=== PATIENT | female | born 1945 | race Caucasian/White ===

== ENCOUNTER 2018-07-18 21:15 | Emergency (ER) | payer OTHER, BC ==
--- NOTE | 2018-07-18 21:26 | PDOC ---
History of Present Illness - General Chief Complaint: Diarrhea Stated Complaint: DIARRHEA X 24 HOURS/NAUSEA Time Seen by Provider: 07/18/18 21:19 Past History - Past Medical History Allergies/Adverse Reactions: Allergies Allergy/AdvReac Type Severity Reaction Status Date / Time Penicillins Allergy Verified 09/26/12 08:33 Sulfa (Sulfonamide Allergy Verified 09/26/12 08:33 Antibiotics) LATEX Allergy Uncoded 09/26/12 08:34 Home Medications: Ambulatory Orders Esomeprazole Mag Trihydrate [Nexium] 40 mg PO DAILY 05/01/13 Janumet 50-500 mg Tablet 5,500 mg PO BID 05/01/13 Diabetes: Yes - Surgical History Cholecystectomy: Yes - Suicide/Smoking/Psychosocial Hx Smoking Status: No Smoking History: Former smoker Have you smoked in the past 12 months: No Number of Cigarettes Smoked Daily: 0 Hx Alcohol Use: No Drug/Substance Use Hx: No Substance Use Type: None Hx Substance Use Treatment: No *DC/Admit/Observation/Transfer - Discharge Dispostion Condition at time of disposition: Stable - Referrals - Patient Instructions - Post Discharge Activity
[2018-07-18 21:38] VITALS: BP 131/82; PULSE 85; TEMP 97.3; BMI 25.8
[2018-07-18] MEDS ORDERED: LOPERAMIDE HCL 2 MG CAPSULE ONE (21:42)
[2018-07-18] MEDS ORDERED: SODIUM CHLORIDE 500 ML IV STA ×2 (21:42→22:38)
[2018-07-18] MEDS ORDERED: ONDANSETRON 4 MG/2 ML VIAL ONE ×2 (21:43→23:33)
[2018-07-18] MEDS ORDERED: LOPERAMIDE HCL 2 MG CAPSULE PO ONE (21:43)
[2018-07-18] MEDS ORDERED: ONDANSETRON 4 MG/2 ML VIAL IVPUSH ONE (21:43)
[2018-07-18 21:47] LABS: BASO % 0.8 % (0-2.0); EOS % 1.9 % (0-4.5); HEMATOCRIT 43.2 % (32.4-45.2); HEMOGLOBIN 14.3 GM/dl (10.7-15.3); LYMPH % 19.1 % (8-40); MCH 26.2 pg (25.7-33.7); MCHC 33.1 g/dl (32.0-36.0); MEAN CELL VOLUME 79.3 fl (80-96); MEAN PLT VOLUME 9.3 fl (7.5-11.1); MONO % 5.7 % (3.8-10.2); NEUT % 72.5 % (42.8-82.8); PLATELET COUNT 313 K/MM3 (134-434); RBC 5.45 M/mm3 (3.60-5.2); RDW 15.4 % (11.6-15.6)
[2018-07-18 21:54] LABS: ALBUMIN 4.7 g/dl (3.4-5.0); ALK PHOS 106 U/L (45-117); ANION GAP 13 MMOL/L (8-16); BILIRUBIN,TOTAL 0.8 mg/dl (0.2-1); BLOOD UREA NITROGEN 30 mg/dl (7-18); CALCIUM 10.3 mg/dl (8.5-10); CHLORIDE 104 mmol/L (98-107); CO2 19 mmol/L (21-32); CREATININE 1.5 mg/dl (0.55-1.3); GLUCOSE,RANDOM 181 mg/dl (74-106); POTASSIUM 4.6 mmol/L (3.5-5.1); SGOT/AST 22 U/L (15-37); SGPT/ALT 31 U/L (13-61); SODIUM 136 mmol/L (136-145); TOT PROT 8.2 g/dl (6.4-8.2)
[2018-07-19] MEDS ORDERED: ONDANSETRON *ODT* 4 MG TABLET ONE (01:28)
--- NOTE | 2018-07-19 03:28 | PDOC ---
Documentation entered by Ruddy Hendrickson SCRIBE, acting as scribe for Aleah Donato MD. Aleah Donato MD: This documentation has been prepared by the Emeka brady Xhesika, SCRIBE, under my direction and personally reviewed by me in its entirety. I confirm that the documentation accurately reflects all work, treatment, procedures, and medical decision making performed by me. History of Present Illness - General Chief Complaint: Diarrhea Stated Complaint: DIARRHEA X 24 HOURS/NAUSEA Time Seen by Provider: 07/18/18 21:19 History Source: Patient Exam Limitations: No Limitations - History of Present Illness Initial Comments: 07/18/18 22:29 The patient is a 73 year old female, with a significant past medical history of Anxiety, PTSD, SVT, Small bowel obstruction, hypertension, high cholesterol, coronary disease and diabetes who presents to the emergency department with sever, constant, yellow mucus diarrhea and nausea since yesterday. The patient states she did not eat all day yesterday , however, she ate a slice of pizza from 10/06. The patient states she endorses stomach pain, blurry vision, dehydration, lightheadedness, and palpitations, however, the palpitations and blurry vision have since resolved. The patient states her girlfriend recently had the flu. The patient notes she went to urgent care and was told to go to [facility] but the wait was long so she came to the ED. The patient denies chest pain, shortness of breath, headache. The patient denies fever, chills, vomit, or constipation. The patient denies dysuria or hematuria. Allergies:diphenhydramine, Penicillins, LATEX, and sulfa Past surgical history:Cholecystectomy Social history: Former smoker Past History - Past Medical History Allergies/Adverse Reactions: Allergies Allergy/AdvReac Type Severity Reaction Status Date / Time diphenhydramine Allergy Verified 07/18/18 21:39 [From Benadryl] Penicillins Allergy Verified 07/18/18 21:26 Sulfa (Sulfonamide Allergy Verified 07/18/18 21:26 Antibiotics) LATEX Allergy Uncoded 07/18/18 21:26 Home Medications: Ambulatory Orders Bupropion HCl [Wellbutrin -] 300 mg PO DAILY 07/18/18 Esomeprazole Magnesium [Nexium 24Hr] 40 mg PO DAILY 07/18/18 Sitagliptin Phos/Metformin HCl [Janumet 50-500 mg Tablet] 1 each PO DAILY Ondansetron [Zofran Odt -] 4 mg SL BID PRN #6 od.tablet 07/19/18 COPD: No Diabetes: Yes Other medical history: PTSD/ANXIETY - Surgical History Cholecystectomy: Yes - Suicide/Smoking/Psychosocial Hx Smoking Status: No Smoking History: Former smoker Have you smoked in the past 12 months: No Number of Cigarettes Smoked Daily: 0 Information on smoking cessation initiated: No Hx Alcohol Use: No Drug/Substance Use Hx: No Substance Use Type: None Hx Substance Use Treatment: No Review of Systems - Review of Systems Able to Perform ROS?: Yes Comments:: 07/18/18 22:29 GENERAL/CONSTITUTIONAL: No fever or chills. No weakness. HEAD, EYES, EARS, NOSE AND THROAT: (+) blurry vision. No ear pain or discharge. No sore throat. CARDIOVASCULAR: No chest pain or shortness of breath. RESPIRATORY: No cough, wheezing, or hemoptysis. GASTROINTESTINAL: (+) nausea, diarrhea. No constipation. GENITOURINARY: No dysuria, frequency, or change in urination. MUSCULOSKELETAL: (+) stomach pain. No joint or muscle swelling or pain. No neck or back pain. SKIN: No rash NEUROLOGIC: (+) lightheadedness. No headache, vertigo, loss of consciousness, or change in strength/sensation. ENDOCRINE: No increased thirst. No abnormal weight change. HEMATOLOGIC/LYMPHATIC: No anemia, easy bleeding, or history of blood clots. ALLERGIC/IMMUNOLOGIC: No hives or skin allergy. *Physical Exam - Vital Signs Last Vital Signs Temp Pulse Resp BP Pulse Ox 97.3 F L 85 16 131/82 100 07/18/18 21:32 07/18/18 21:32 07/18/18 21:32 07/18/18 21:32 07/18/18 21:32 - Physical Exam Comments: 07/18/18 22:30 GENERAL: Awake, alert, and fully oriented, in no acute distress HEAD: No signs of trauma EYES: PERRLA, EOMI, sclera anicteric, conjunctiva clear ENT: Auricles normal inspection, hearing grossly normal, nares patent, oropharynx clear without exudates. (+) dry mucosa NECK: Normal ROM, supple, no lymphadenopathy, JVD, or masses LUNGS: Breath sounds equal, clear to auscultation bilaterally. No wheezes, and no crackles HEART: Regular rate and rhythm, normal S1 and S2, no murmurs, rubs or gallops ABDOMEN: (+) Well healed midline scar. (+) generalized mild tenderness without rebound or guarding. normoactive bowel sounds. No masses EXTREMITIES: Normal range of motion, no edema. No clubbing or cyanosis. No cords, erythema, or tenderness NEUROLOGICAL: Cranial nerves II through XII grossly intact. Normal speech, normal gait SKIN: Warm, Dry, normal turgor, no rashes or lesions noted. ED Treatment Course - LABORATORY CBC & Chemistry Diagram: 07/18/18 21:32 07/18/18 21:32 Medical Decision Making - Medical Decision Making 07/19/18 01:19 Because of the patient's history of small bowel obstruction and air fluid levels found on flat and upright x-ray views of the abdomen, noncontrast CT of the abdomen and pelvis performed. Preliminary interpretation by Imaging socially responsible investment adviser : Air-fluid levels within colon without wall thickening suspicious for diarrheal disease. Stomach and small bowel are normal without evidence of obstruction. No evidence of appendicitis. There is evidence of mild splenomegaly and neurogenic bladder. Clinical presentation most consistent with gastroenteritis, likely food borne ( although viral gastroenteritis is still possible). Results discussed with the patient. She states that she is feeling much better with no further lightheadedness/nausea or abdominal discomfort. She had 2 episodes of loose stool while here in the emergency room, both when she first arrived. In the last 3-4 hours, while evaluation was being completed, she had no further diarrhea. Patient will be discharged with instructions to continue clear liquids as tolerated with cautious advancement of diet. Zofran ODT 4 mg up to twice a day (#6) prescription will be sent to her pharmacy. She should return to the emergency room if she has vomiting/fever/increasing abdominal pain or blood in her stool. She should follow-up with her doctor within the next few days, especially if she has persistent diarrhea *DC/Admit/Observation/Transfer Diagnosis at time of Disposition: Gastroenteritis - Discharge Dispostion Disposition: HOME Condition at time of disposition: Stable - Prescriptions Prescriptions: Ondansetron [Zofran Odt -] 4 mg SL BID PRN #6 od.tablet PRN Reason: Nausea - Referrals - Patient Instructions Printed Discharge Instructions: Diarrhea Additional Instructions: clear liquids, advance diet cautiously Zofran ODT 4 mg up to twice a day as needed for nausea Imodium/Kaopectate/Pepto-Bismol as needed for diarrhea Return to ER if you have persistent vomiting/fever/worsening abdominal pain/ extreme weakness or of lightheadedness Follow-up with your doctor within the next 2-3 days. see your doctor if you see blood in your stool or diarrhea lasts for more than 5 days - Post Discharge Activity
== END 2018-07-19 01:38 | disposition home or self-care (01) ==
LOC: FER 21:15
PROC: 3E033GC Introduction of Other Therapeutic Substance into Peripheral Vein, Percutaneous Approach (ICD-10-PCS; principal; 2018-07-18)
PROC: 3E0337Z Introduction of Electrolytic and Water Balance Substance into Peripheral Vein, Percutaneous Approach (ICD-10-PCS; 2018-07-18)
DX: K52.9 Noninfective gastroenteritis and colitis, unspecified (principal); Z87.891 Personal history of nicotine dependence; F43.10 Post-traumatic stress disorder, unspecified; E11.9 Type 2 diabetes mellitus without complications; I47.1 Supraventricular tachycardia; I10 Essential (primary) hypertension; E78.00 Pure hypercholesterolemia, unspecified; I25.10 Atherosclerotic heart disease of native coronary artery without angina pectoris
CPT/HCPCS: 36415; 71046-TC-FY; 74019-TC-FY; 74176-TC; 80053; 85025; 99282-25